=== PATIENT | female | born 1985 | race Caucasian/White ===

== ENCOUNTER 2019-06-21 05:43 | Day surgery (SDC) | payer OTHER ==
[~2019-06-21] VITALS: Ht 182.9 cm; Wt 76.3 kg
[2019-06-21 06:11] VITALS: BP 124/80
[2019-06-21] MEDS ORDERED: BCP PO (06:18)
[2019-06-21] MEDS ORDERED: LACTATED RINGERS 1,000 ML IV SCH (06:29)
[2019-06-21] MEDS ORDERED: FAMOTIDINE 20 MG TABLET PO ONE (06:30)
[2019-06-21] MEDS ORDERED: ACETAMINOPHEN 500 MG TABLET PO ONE (06:30)
[2019-06-21] MEDS ORDERED: GABAPENTIN 300 MG CAPSULE PO ONE (06:30)
[2019-06-21] MEDS ORDERED: FENTANYL PF 250 MCG/5ML ONE (06:34)
[2019-06-21] MEDS ORDERED: DEXAMETHASONE 4 MG/ML, 1ML ONE (06:34)
[2019-06-21] MEDS ORDERED: PROPOFOL 10 MG/ML, 20ML ONE (06:34)
[2019-06-21] MEDS ORDERED: MIDAZOLAM 1 MG/ML, 2ML ONE (06:34)
[2019-06-21] MEDS ORDERED: ROCURONIUM 10MG/ML,5ML ONE (06:34)
[2019-06-21] MEDS ORDERED: LIDOCAINE-MPF 1%, 2ML ONE (06:35)
[2019-06-21 06:38] LABS: HCG UR SG 1.029 (1.003-1.030)
[2019-06-21] MEDS ORDERED: CEFAZOLIN 1,000 MG ONE (06:47)
[2019-06-21] MEDS ORDERED: BUPIVACAINE/PF 0.5% ONE (06:56)
[2019-06-21] MEDS ORDERED: ROPIvacaine/PF 0.5%, 30 ML ONE (06:56)
[2019-06-21] MEDS ORDERED: EPINEPHRINE 1 MG/ML, 1ML ONE (06:57)
[2019-06-21] MEDS ORDERED: PROMETHAZINE 25 MG/ML, 1ML IV PRN (07:30)
[2019-06-21] MEDS ORDERED: ONDANSETRON 2MG/ML, 2ML IV PRN (07:30)
[2019-06-21] MEDS ORDERED: OXYcodone 5 MG/5 ML ORAL.SOL UDC PO PRN (07:30)
[2019-06-21] MEDS ORDERED: hydrALAzine 20 MG/ML, 1ML IV PRN (07:30)
[2019-06-21] MEDS ORDERED: FENTANYL PF 100 MCG/2ML IV PRN (07:30)
[2019-06-21] MEDS ORDERED: LABETALOL 5MG/ML, 20ML IV PRN (07:30)
[2019-06-21] MEDS ORDERED: MEPERIDINE/PF 25MG/ML,1ML IVPush PRN (07:30)
[2019-06-21] MEDS ORDERED: HYDROmorphone 2 MG/ML, 1ML IVPush PRN (07:30)
[2019-06-21] MEDS ORDERED: ONDANSETRON 2MG/ML, 2ML ONE (08:09)
[2019-06-21] MEDS ORDERED: OXYcodone 5 MG/5 ML ORAL.SOL UDC ONE (08:38)
[2019-06-21] MEDS ORDERED: FENTANYL PF 100 MCG/2ML ONE (08:38)
[2019-06-21] MEDS ORDERED: MEPERIDINE/PF 25MG/ML,1ML ONE (08:38)
== END 2019-06-21 10:40 | disposition home or self-care (01) ==
LOC: OUT 05:43
PROVIDERS: ATTEND Orthopaedic Surgery
DX: S76.311A Strain of muscle, fascia and tendon of the posterior muscle group at thigh level, right thigh, initial encounter (principal); Z87.891 Personal history of nicotine dependence; Z88.2 Allergy status to sulfonamides; Z80.0 Family history of malignant neoplasm of digestive organs; X58.XXXA Exposure to other specified factors, initial encounter; Y93.51 Activity, roller skating (inline) and skateboarding; Y92.89 Other specified places as the place of occurrence of the external cause; Y99.8 Other external cause status
CPT/HCPCS: 27385; 81025; C1713; J0690; J1100; J2175; J2250; J2405; J2704; J2795; J3010; J7120; J0171